=== PATIENT | male | born 1975 | race Two or more races ===

== ENCOUNTER 2025-02-20 12:28 | Emergency (ER) | payer OTHER ==
[~2025-02-20] VITALS: Ht 170.2 cm; Wt 90.3 kg
[2025-02-20] MEDS ORDERED: NORFLEX (13:43)
[2025-02-20] MEDS ORDERED: RELAFEN DS1000 MG PO (13:43)
[2025-02-20 13:45] VITALS: BP 114/76; O2SAT 96
[2025-02-20] MEDS ORDERED: ORPHENADRINE CITRATE 30 MG/ML AMPUL IV ONE (14:00)
[2025-02-20] MEDS ORDERED: KETOROLAC TROMETHAMINE 60 MG VIAL IM ONE (14:00)
[2025-02-20] MEDS ORDERED: NORFLEX100MG PO (14:59)
== END 2025-02-20 16:48 | disposition home or self-care (01) ==
LOC: ER 12:28
DX: S93.401A Sprain of unspecified ligament of right ankle, initial encounter (principal); X58.XXXA Exposure to other specified factors, initial encounter; Y93.9 Activity, unspecified; Y92.89 Other specified places as the place of occurrence of the external cause; Y99.9 Unspecified external cause status